=== PATIENT | female | born 1965 | race Hispanic/Latino ===

== ENCOUNTER 2018-09-26 08:45 | Emergency (ER) | payer OTHER ==
[~2018-09-26] VITALS: Ht 157.5 cm; Wt 72.6 kg
[~2018-09-26 08:45] MED LIST: [UNRECOGNIZED DRUG - CODE]
--- NOTE | 2018-09-26 09:51 | Diagnostic Imaging Report ---
Exam: Right foot 3 views History: Pain Comparison: None. Findings: Transverse fracture of the fifth metatarsal base tuberosity. Adjacent swelling. Impression: Transverse fracture of the fifth metatarsal base tuberosity Signed by: Dr. Deangelo Dumont M.D. on 09/26/2018 9:47 AM
[2018-09-26 10:39] VITALS: BP 120/80
== END 2018-09-26 10:55 | disposition home or self-care (01) ==
LOC: ER 08:45
DX: M79.671 Pain in right foot (principal); S92.354A Nondisplaced fracture of fifth metatarsal bone, right foot, initial encounter for closed fracture; R26.2 Difficulty in walking, not elsewhere classified; X50.1XXA Overexertion from prolonged static or awkward postures, initial encounter
CPT/HCPCS: 99283

== ENCOUNTER 2021-08-28 19:06 | Emergency (ER) | payer OTHER ==
[~2021-08-28] VITALS: Ht 154.9 cm; Wt 72.6 kg
[2021-08-28] MEDS ORDERED: KETOROLAC TROMETHAMINE 60 MG/2 ML VIAL IM ONE (20:00)
[2021-08-28] MEDS ORDERED: ULTRACET TABLE1 EACH PO (21:22)
[2021-08-28] MEDS ORDERED: IBUPROFEN600 MG PO (21:22)
[2021-08-29 02:06] VITALS: BP 132/65
== END 2021-08-28 20:15 | disposition home or self-care (01) ==
LOC: ER 19:30
DX: S82.64XA Nondisplaced fracture of lateral malleolus of right fibula, initial encounter for closed fracture (principal); X50.1XXA Overexertion from prolonged static or awkward postures, initial encounter; Y92.008 Other place in unspecified non-institutional (private) residence as the place of occurrence of the external cause; Z87.442 Personal history of urinary calculi
CPT/HCPCS: J1885